=== PATIENT | female | born 1985 | race Caucasian/White ===

== ENCOUNTER → 2018-01-16 | Outpatient (CLI) | payer MEDICAID ==
[2018-01-16 10:33] LABS: EOS # 0.1 (0.04-0.40); EOS % 2.5 % (1.0-5.0); HEMOGLOBIN 12.4 g/dL (12.5-16.0); LYMPH# 1.4 (1.50-4.00); MEAN CELL VOLUME 93 fl (78-100); MEAN CORPUSCULAR HEMOGLOBIN 30 pg (27-31); MEAN CORPUSCULAR HGB CONC 33 g/dL (33-37); MEAN PLATELET VOLUME 10.2 fl (7.4-10.4); MONO # 0.4 (0.20-0.80); NEU # 2.7 (1.40-6.50); PLATELET COUNT 261 K/mm3 (130-400); RED CELL DISTRIBUTION WIDTH 12.7 % (11.5-14.5); WHITE BLOOD COUNT 4.7 K/mm3 (4.8-10.8)
[2018-01-16 10:52] LABS: ALBUMIN 4.3 g/dL (3.5-5.0); CALCIUM 9.3 mg/dL (8.4-10.2); POTASSIUM 4.2 mmol/L (3.6-5.0); TOTAL BILIRUBIN 0.7 mg/dL (0.2-1.3); TOTAL PROTEIN 7.4 g/dL (6.3-8.2)
== END ==
LOC: LAB 10:20
PROVIDERS: Family Medicine
DX: Z00.00 Encounter for general adult medical examination without abnormal findings (principal); R74.0 Nonspecific elevation of levels of transaminase and lactic acid dehydrogenase [LDH]; R53.83 Other fatigue

== ENCOUNTER → 2019-07-29 | Outpatient (CLI) | payer MEDICAID ==
[2019-07-29 16:11] LABS: EOS # 0.4 (0.04-0.40); EOS % 4.6 % (1.0-5.0); HEMATOCRIT 37.2 % (37.0-47.0); HEMOGLOBIN 12.2 g/dL (12.5-16.0); LYMPH# 1.9 (1.50-4.00); MEAN CELL VOLUME 91 fl (78-100); MEAN CORPUSCULAR HEMOGLOBIN 30 pg (27-31); MEAN CORPUSCULAR HGB CONC 33 g/dL (33-37); MEAN PLATELET VOLUME 10.8 fl (7.4-10.4); MONO # 0.4 (0.20-0.80); NEU # 4.8 (1.40-6.50); PLATELET COUNT 259 K/mm3 (130-400); RED BLOOD COUNT 4.11 M/mm3 (4.10-5.30); WHITE BLOOD COUNT 7.6 K/mm3 (4.8-10.8)
[2019-08-01 06:34] LABS: BAKERS YEAST ALLERGEN COUNT <0.35 kU/L (<0.35); CORN ALLERGEN COUNT <0.35 kU/L (<0.35); EGG WHITE ALLERGEN COUNT <0.35 kU/L (<0.35); MILK ALLERGEN COUNT <0.35 kU/L (<0.35); ORANGE ALLERGEN COUNT <0.35 kU/L (<0.35); PEANUT ALLERGEN COUNT <0.35 kU/L (<0.35); RICE ALLERGEN COUNT <0.35 kU/L (<0.35); SOYBEAN ALLERGEN COUNT <0.35 kU/L (<0.35); STRAWBERRY ALLERGEN COUNT <0.35 kU/L (<0.35); TOMATO ALLERGEN COUNT <0.35 kU/L (<0.35); WHEAT ALLERGEN COUNT <0.35 kU/L (<0.35)
[2019-08-01 12:59] LABS: ANA SCREEN with REFLEX Indeterminate (Negative)
== END ==
LOC: LAB 15:45
PROVIDERS: Family Medicine
DX: L30.9 Dermatitis, unspecified (principal); K25.9 Gastric ulcer, unspecified as acute or chronic, without hemorrhage or perforation; K21.0 Gastro-esophageal reflux disease with esophagitis

== ENCOUNTER → 2019-08-06 | Outpatient (CLI) | payer MEDICAID | LOC: LAB 15:17 | DX: R76.8 Other specified abnormal immunological findings in serum (principal) ==